=== PATIENT | female | born 2000 | race Hispanic/Latino ===

== ENCOUNTER 2021-07-03 18:06 | Emergency (ER) | payer OTHER, SELFPAY ==
[~2021-07-03] VITALS: Ht 154.9 cm; Wt 84.4 kg
[2021-07-03] MEDS ORDERED: AZIT500T PO (19:53)
[2021-07-03 20:11] VITALS: BP 101/59
== END 2021-07-03 20:11 | disposition home or self-care (01) ==
LOC: EDH 18:06
DX: H66.92 Otitis media, unspecified, left ear (principal); J02.9 Acute pharyngitis, unspecified; Z90.49 Acquired absence of other specified parts of digestive tract

== ENCOUNTER 2021-07-12 09:05 | Emergency (ER) | payer SELFPAY ==
[~2021-07-12] VITALS: Ht 154.9 cm; Wt 78.0 kg
[~2021-07-12 09:05] MED LIST: AZIT500T PO
[2021-07-12 09:34] VITALS: BP 91/65
[2021-07-12] MEDS ORDERED: KETOROLAC 60 MG VIAL (30MG/ML) IM SCH (10:00)
[2021-07-12] MEDS ORDERED: L.E.T. GEL 3ML SYG TP ONE (10:24)
[2021-07-12] MEDS ORDERED: NAPR-1179 PO (11:27)
[2021-07-12] MEDS ORDERED: CLIN300C10 PO (11:27)
[2021-07-12 11:34] VITALS: BP 110/56
== END 2021-07-12 11:40 | disposition home or self-care (01) ==
LOC: EDH 09:05
DX: L05.01 Pilonidal cyst with abscess (principal); Z79.1 Long term (current) use of non-steroidal anti-inflammatories (NSAID); Z90.49 Acquired absence of other specified parts of digestive tract
CPT/HCPCS: 10081; 96372; 99283; J1885

== ENCOUNTER 2021-07-14 11:17 | Emergency (ER) | payer OTHER ==
[~2021-07-14] VITALS: Ht 157.5 cm; Wt 79.8 kg
[~2021-07-14 11:17] MED LIST changes: +CLIN300C10 PO; +NAPR-1179 PO
[2021-07-14 11:47] LABS: APPEARANCE,URINE Cloudy (CLEAR); BILIRUBIN,URINE Negative (NEGATIVE); COLOR,URINE Yellow (YELLOW); GLUCOSE, URINE (UA) >=1000 mg/dL (NEGATIVE); KETONES,URINE 15 mg/dL (NEGATIVE); LEUKOCYTE ESTERASE ,URINE Negative (NEGATIVE); NITRATE,URINE Negative (NEGATIVE); OCCULT BLOOD,URINE Negative (NEGATIVE); PH,URINE 5.5 (5.0-8.0); PROTEIN,URINE Negative (NEGATIVE); UROBILINOGEN,URINE 0.2 mg/dL (0.2-1.0)
[2021-07-14 11:52] VITALS: BP 101/48
[2021-07-14 12:12] LABS: BACTERIA,URINE Rare /HPF (None Seen); SQUAMOUS EPITHELIAL CELL,UR Rare /HPF (0-2); WBC,URINE 0-1 /HPF (0-1); YEAST,URINE BUDDING Few /HPF (None Seen)
[2021-07-14] MEDS ORDERED: KETOROLAC 30MG VIAL (30MG/ML) IM SCH (13:00)
== END 2021-07-14 13:29 | disposition home or self-care (01) ==
LOC: EDH 11:17
DX: Z48.00 Encounter for change or removal of nonsurgical wound dressing (principal); Z79.1 Long term (current) use of non-steroidal anti-inflammatories (NSAID); Z90.49 Acquired absence of other specified parts of digestive tract
CPT/HCPCS: 81001; 99283; J1885

== ENCOUNTER 2021-07-19 17:14 | Inpatient (IN) | payer OTHER ==
[~2021-07-19] VITALS: Ht 154.9 cm; Wt 70.9 kg
[2021-07-19] MEDS ORDERED: MORPHINE 2 MG SYG IVP ONE (17:30)
[2021-07-19] MEDS ORDERED: ONDANSETRON 4MG INJ IVP ONE (17:30)
[2021-07-19] MEDS ORDERED: ACETAMINOPHEN 325 MG TAB PO ONE (17:30)
[2021-07-19] MEDS ORDERED: 0.9%NACL 1000ML 1,000 ML IV ONE (17:30)
[2021-07-19 17:54] LABS: BASOPHILS % (AUTO) 0.3 % (0.0-5.0); EOSINOPHILS % (AUTO) 1.6 % (0.0-8.0); LYMPHOCYTES % (AUTO) 11.3 % (21.0-51.0); MEAN CORPUSCULAR HEMOGLOBIN 30.3 pg (27.0-33.0); MEAN CORPUSCULAR HGB CONC 34.6 g/dL (32.0-36.0); MEAN CORPUSCULAR VOLUME 87.7 fL (80-100); MONOCYTES % (AUTO) 6.8 % (3.0-13.0); NEUTROPHILS % (AUTO) 79.6 % (40.0-77.0); PLATELET COUNT (AUTO) 235 K/uL (130-400); RED BLOOD CELL COUNT(AUTO) 4.22 MIL/uL (4.00-5.50); RED CELL DISTRIBUTION WIDTH 12.9 % (11.0-15.5); WHITE BLOOD COUNT (AUTO) 6.9 K/uL (4.8-10.8)
[2021-07-19 18:07] LABS: ALBUMIN 3.7 g/dL (3.5-5.0); BILIRUBIN,TOTAL 1.4 mg/dL (0.2-1.0); CREATININE 0.8 mg/dL (0.5-1.5); POTASSIUM 3.9 mmol/L (3.5-5.1); TOTAL PROTEIN, SERUM 7.8 g/dL (6.0-8.3)
[2021-07-19 18:16] LABS: BILIRUBIN,URINE Negative (NEGATIVE); COLOR,URINE Yellow (YELLOW); GLUCOSE, URINE (UA) >=1000 mg/dL (NEGATIVE); KETONES,URINE >=160 mg/dL (NEGATIVE); LEUKOCYTE ESTERASE ,URINE Negative (NEGATIVE); NITRATE,URINE Negative (NEGATIVE); OCCULT BLOOD,URINE Negative (NEGATIVE); PROTEIN,URINE Negative (NEGATIVE); UROBILINOGEN,URINE 0.2 mg/dL (0.2-1.0)
[2021-07-19 18:18] LABS: APPEARANCE,URINE CLEAR (CLEAR)
[2021-07-19 18:22] VITALS: BP 100/68
[2021-07-19 18:25] LABS: HCG,QUAL RESULT NEGATIVE (NEGATIVE)
[2021-07-19 18:31] LABS: BACTERIA,URINE Rare /HPF (None Seen); RBC,URINE 0-1 /HPF (0-1); WBC,URINE 0-1 /HPF (0-1)
[2021-07-19 18:33] LABS: MUCUS,URINE None Seen LPF (None Seen); YEAST,URINE BUDDING Few /HPF (None Seen)
[2021-07-19] MEDS ORDERED: IOHEXOL-350 75 ML VIAL IV ONE (18:39)
[2021-07-19] MEDS ORDERED: INSULIN HUMULIN R 100 UNIT/ML 3ML SQ ONE (19:00)
[2021-07-19] MEDS ORDERED: ONDA4TAB4 PO (19:56)
[2021-07-19 20:20] VITALS: BP 99/56
[2021-07-19] MEDS ORDERED: LACTATED RINGERS 1000ML 2,000 ML IV ONE (20:30)
[2021-07-19 23:07] LABS: CREATININE 0.5 mg/dL (0.5-1.5); POTASSIUM 3.5 mmol/L (3.5-5.1)
[2021-07-19 23:59] LABS: ABG BASE EXCESS -3.9 mmol/L (-2.0-3.0); ABG HCO3 19.4 mmol/L (21.0-28.0); ABG OXYGEN SATURATION 97.6 % (95.0-99.0); ABG PCO2 31 mmHg (32-45)
[2021-07-20] MEDS ORDERED: LIDOCAINE HCL-MPF 1% 2ML VIAL IV PRN
[2021-07-20] MEDS ORDERED: POTASSIUM CHLORIDE 10% ELIXIR 20 MEQ/15 ML UDCUP PO PRN
[2021-07-20] MEDS ORDERED: ONDANSETRON 4MG INJ IV PRN
[2021-07-20] MEDS ORDERED: INSULIN HUMULIN R 100 UNIT/ML 3ML SQ SCH
[2021-07-20] MEDS ORDERED: POTASSIUM CHLORIDE 20MEQ/100ML 100 ML IV PRN
[2021-07-20 00:15] VITALS: BP 101/63
[2021-07-20 00:26] LABS: HEMOGLOBIN A1C 10.6 % (4.0-6.0)
[2021-07-20] MEDS ORDERED: LACTATED RINGERS 1000ML 1,000 ML IV ONE (02:40)
[2021-07-20 06:07] LABS: CREATININE 0.5 mg/dL (0.5-1.5); MAGNESIUM 1.4 mg/dL (1.80-2.40); PHOSPHORUS 2.8 mg/dL (2.5-4.9); POTASSIUM 3.4 mmol/L (3.5-5.1)
[2021-07-20] MEDS: INSULIN R NPO SSI SQ SCH ×3 (06:38→17:19)
[2021-07-20 06:44] VITALS: BP 102/52
[2021-07-20 08:00] VITALS: BP 99/62
[2021-07-20] MEDS: LACTATED RINGERS 1000ML 1,000 ML IV SCH ×3 (10:26→13:20)
[2021-07-20] MEDS: FAMOTIDINE 20MG TAB PO SCH (10:27)
[2021-07-20] MEDS: KCL 20 MEQ ERTAB PO SCH (10:27)
[2021-07-20] MEDS: ENOXAPARIN SODIUM 40 MG/0.4 ML SYRINGE SQ SCH (10:28)
[2021-07-20] MEDS: MAGNESIUM 2GM PREMIX 50ML 50 ML IV PRN (10:30)
[2021-07-20 11:21] LABS: CREATININE 0.4 mg/dL (0.5-1.5); POTASSIUM 3.3 mmol/L (3.5-5.1)
[2021-07-20] MEDS ORDERED: INSULIN GLARGINE 100 UNITS/ML 10 ML VIAL SQ ONE (14:00)
[2021-07-20 16:00] VITALS: BP 104/60
[2021-07-20 16:06] LABS: CREATININE 0.5 mg/dL (0.5-1.5)
[2021-07-20 19:16] LABS: CREATININE 0.4 mg/dL (0.5-1.5); POTASSIUM 3.7 mmol/L (3.5-5.1)
[2021-07-20 19:55] VITALS: BP 106/64
[2021-07-20] MEDS ORDERED: SULFAMETHOX-TMP DS 800/160 TAB PO SCH (21:00)
[2021-07-20 23:40] LABS: CREATININE 0.4 mg/dL (0.5-1.5)
[2021-07-20] MEDS: KCL 20 MEQ ERTAB PO PRN (23:47)
[2021-07-21] VITALS (19 sets, daily range): BP systolic 93–115; BP diastolic 56–81
[2021-07-21] MEDS: KCL 20 MEQ ERTAB PO PRN ×2 (00:43→03:36)
[2021-07-21] MEDS: LACTATED RINGERS 1000ML 1,000 ML IV SCH (00:57)
[2021-07-21 05:25] LABS: CREATININE 0.5 mg/dL (0.5-1.5); MAGNESIUM 1.4 mg/dL (1.80-2.40); POTASSIUM 4.4 mmol/L (3.5-5.1)
[2021-07-21] MEDS: MAGNESIUM 2GM PREMIX 50ML 50 ML IV PRN (06:18)
[2021-07-21] MEDS: INSULIN HUMULIN R 100 UNIT/ML 3ML SQ SCH ×5 (06:25→21:36)
[2021-07-21 08:58] LABS: BASOPHILS % (AUTO) 0.5 % (0.0-5.0); EOSINOPHILS % (AUTO) 0.4 % (0.0-8.0); HEMATOCRIT 36.5 % (36-48); LYMPHOCYTES % (AUTO) 16.5 % (21.0-51.0); MEAN CORPUSCULAR HEMOGLOBIN 30.1 pg (27.0-33.0); MEAN CORPUSCULAR HGB CONC 33.2 g/dL (32.0-36.0); MEAN CORPUSCULAR VOLUME 90.8 fL (80-100); MONOCYTES % (AUTO) 9.1 % (3.0-13.0); NEUTROPHILS % (AUTO) 72.8 % (40.0-77.0); PLATELET COUNT (AUTO) 242 K/uL (130-400); RED BLOOD CELL COUNT(AUTO) 4.02 MIL/uL (4.00-5.50); RED CELL DISTRIBUTION WIDTH 13.2 % (11.0-15.5); WHITE BLOOD COUNT (AUTO) 5.5 K/uL (4.8-10.8)
[2021-07-21] MEDS: ENOXAPARIN SODIUM 40 MG/0.4 ML SYRINGE SQ SCH (09:00)
[2021-07-21] MEDS ORDERED: ZOSYN 3.375GM+NS 50ML 3.38 GM in 0.9%NACL 50ML 50 ML IV SCH (09:00)
[2021-07-21] MEDS ORDERED: DiphenhydrAMINE HCL 50 MG/ML VIAL IV SCH (09:00)
[2021-07-21 09:06] LABS: CREATININE 0.5 mg/dL (0.5-1.5); POTASSIUM 3.6 mmol/L (3.5-5.1)
[2021-07-21] MEDS: ZOSYN 3.375GM+NS 50ML 50 ML IV SCH ×2 (10:06→18:14)
[2021-07-21] MEDS: FAMOTIDINE 20MG TAB PO SCH (10:06)
[2021-07-21] MEDS: KCL 20 MEQ ERTAB PO SCH (10:12)
[2021-07-21] MEDS: INSULIN GLARGINE 100 UNITS/ML 10 ML VIAL SQ SCH (10:13)
[2021-07-21] MEDS ORDERED: INSULIN HUMULIN R 100 UNIT/ML 3ML SQ SCH (12:00)
[2021-07-21] MEDS ORDERED: DEXAMETHASONE SOD PHOSPHATE 10MG/ML 1ML VIAL ONE (16:35)
[2021-07-21] MEDS ORDERED: ONDANSETRON 4MG INJ ONE (16:35)
[2021-07-21] MEDS ORDERED: MEPERIDINE-PF 25 MG/ML SYG ONE ×2 (16:43→16:49)
[2021-07-21] MEDS ORDERED: MIDAZOLAM HCL 1 MG/ML 2ML VIAL ONE (16:44)
[2021-07-21] MEDS ORDERED: LIDOCAINE HCL 1% 20 ML VIAL ONE (16:47)
[2021-07-21] MEDS ORDERED: BUPIVACAINE/PF 0.25% 30ML VIAL IJ ONE (16:47)
[2021-07-21] MEDS ORDERED: LIDOCAINE PF 100MG/5ML (2%) SYRINGE 5ML ONE (16:49)
[2021-07-21] MEDS ORDERED: PROPOFOL 10 MG/ML 20ML VIAL IV ONE (16:50)
[2021-07-21] MEDS ORDERED: FENTANYL CITRATE PF 50 MCG/1 ML 2ML VIAL ONE (16:51)
[2021-07-21] MEDS ORDERED: KETOROLAC 30MG VIAL (30MG/ML) ONE (17:37)
[2021-07-22] VITALS (7 sets, daily range): BP systolic 84–94; BP diastolic 50–61
[2021-07-22] MEDS: ZOSYN 3.375GM+NS 50ML 50 ML IV SCH ×3 (01:27→16:40)
[2021-07-22] MEDS: INSULIN HUMULIN R 100 UNIT/ML 3ML SQ SCH ×7 (06:23→21:00)
[2021-07-22] MEDS: FAMOTIDINE 20MG TAB PO SCH (08:36)
[2021-07-22] MEDS: ENOXAPARIN SODIUM 40 MG/0.4 ML SYRINGE SQ SCH (08:37)
[2021-07-22] MEDS: INSULIN GLARGINE 100 UNITS/ML 10 ML VIAL SQ SCH (08:43)
[2021-07-22] MEDS: KCL 20 MEQ ERTAB PO SCH (09:49)
[2021-07-22] MEDS ORDERED: ONDANSETRON 4MG INJ IVP PRN (10:00)
[2021-07-22] MEDS: HYDROCODONE/ACETAMINOPHEN 5/325 MG TAB PO PRN ×2 (14:07→23:37)
[2021-07-23] MEDS: ZOSYN 3.375GM+NS 50ML 50 ML IV SCH ×3 (00:30→17:00)
[2021-07-23 00:34] VITALS: BP 94/62
[2021-07-23 03:47] VITALS: BP 111/54
[2021-07-23] MEDS: INSULIN HUMULIN R 100 UNIT/ML 3ML SQ SCH ×4 (06:34→16:30)
[2021-07-23 07:30] VITALS: BP 94/62
[2021-07-23 08:03] LABS: BASOPHILS % (AUTO) 0.6 % (0.0-5.0); EOSINOPHILS % (AUTO) 0.7 % (0.0-8.0); HEMATOCRIT 39.3 % (36-48); LYMPHOCYTES % (AUTO) 37.7 % (21.0-51.0); MEAN CORPUSCULAR HEMOGLOBIN 30.3 pg (27.0-33.0); MEAN CORPUSCULAR HGB CONC 32.6 g/dL (32.0-36.0); MEAN CORPUSCULAR VOLUME 92.9 fL (80-100); MONOCYTES % (AUTO) 7.3 % (3.0-13.0); NEUTROPHILS % (AUTO) 52.2 % (40.0-77.0); PLATELET COUNT (AUTO) 358 K/uL (130-400); RED BLOOD CELL COUNT(AUTO) 4.23 MIL/uL (4.00-5.50); RED CELL DISTRIBUTION WIDTH 13.2 % (11.0-15.5); WHITE BLOOD COUNT (AUTO) 5.4 K/uL (4.8-10.8)
[2021-07-23 08:23] LABS: ALBUMIN 3.4 g/dL (3.5-5.0); BILIRUBIN,TOTAL 0.7 mg/dL (0.2-1.0); CREATININE 0.6 mg/dL (0.5-1.5); POTASSIUM 3.2 mmol/L (3.5-5.1); TOTAL PROTEIN, SERUM 7.3 g/dL (6.0-8.3)
[2021-07-23] MEDS ORDERED: KCL 20 MEQ ERTAB PO SCH (09:30)
[2021-07-23] MEDS: ENOXAPARIN SODIUM 40 MG/0.4 ML SYRINGE SQ SCH (09:37)
[2021-07-23] MEDS: KCL 20 MEQ ERTAB PO SCH (09:38)
[2021-07-23] MEDS: FAMOTIDINE 20MG TAB PO SCH (09:38)
[2021-07-23] MEDS: INSULIN GLARGINE 100 UNITS/ML 10 ML VIAL SQ SCH (09:39)
[2021-07-23 11:00] VITALS: BP 95/50
[2021-07-23 16:00] VITALS: BP 89/53
[2021-07-23] MEDS ORDERED: AMOX-426 PO (16:48)
[2021-07-23] MEDS ORDERED: DOXY100T2 PO (16:48)
[2021-07-23] MEDS ORDERED: INSULIN HUMULIN R 100 UNIT/ML 3ML SQ SCH (17:00)
[2021-07-23] MEDS ORDERED: 0.9%NACL 1000ML 250 ML IV ONE (17:30)
[2021-07-23] MEDS: HYDROCODONE/ACETAMINOPHEN 5/325 MG TAB PO PRN (18:57)
== END 2021-07-23 19:35 | disposition home or self-care (01) | DRG 393 ==
LOC: EDH 17:14 → OBSVTOIN 17:15 → EDHIP 17:15 → 3DH 07-20 15:35
PROVIDERS: ADMIT Internal Medicine; ATTEND Internal Medicine
PROC: 0D9P3ZZ Drainage of Rectum, Percutaneous Approach (ICD-10-PCS; principal; 2021-07-21 16:55)
DX: K61.1 Rectal abscess (principal); E11.10 Type 2 diabetes mellitus with ketoacidosis without coma; L02.31 Cutaneous abscess of buttock; E83.42 Hypomagnesemia; Z20.822 Contact with and (suspected) exposure to COVID-19; Z86.32 Personal history of gestational diabetes; Z56.0 Unemployment, unspecified; Z79.4 Long term (current) use of insulin; Z90.49 Acquired absence of other specified parts of digestive tract; E11.65 Type 2 diabetes mellitus with hyperglycemia
CPT/HCPCS: 36415; 36600; 72192; 74177; 80048; 80053; 81001; 81025; 82010; 82150; 82550; 82803; 82948; 83036; 83690; 83735; 84100; 85025; 86140; 86695; 87070; 87076; 87205; 87635; 99291; A6407; G0378; J1100; J1200; J1650; J1815; J1885; J2001; J2175; J2250; J2405; J2543; J2704; J3010; J3475; J3490; J7030; J7120; Q9967